=== PATIENT | female | born 1945 | race Caucasian/White ===

== ENCOUNTER → 2024-06-03 14:27 | Outpatient (REF) | payer OTHER, SELFPAY | LOC: WDC 14:27 | PROVIDERS: ATTENDING PHYSICIAN Family Medicine | DX: E55.9 Vitamin D deficiency, unspecified (principal); Z13.820 Encounter for screening for osteoporosis; Z12.31 Encounter for screening mammogram for malignant neoplasm of breast | CPT/HCPCS: 77063; 77067 ==